=== PATIENT | female | born 1965 | race Caucasian/White ===

== ENCOUNTER 2022-07-04 13:42 | Emergency (ER) | payer OTHER ==
[2022-07-04] MEDS ORDERED: PREDNISONE 20MG20 MG PO (15:47)
== END 2022-07-04 16:00 | disposition home or self-care (01) ==
LOC: FER 13:42
DX: M25.561 Pain in right knee (principal); F17.210 Nicotine dependence, cigarettes, uncomplicated; Z88.0 Allergy status to penicillin; Z88.2 Allergy status to sulfonamides; Z28.310 Unvaccinated for COVID-19
CPT/HCPCS: 99283; J1885